=== PATIENT | male | born 1975 | race African-American/Black ===

== ENCOUNTER 2016-11-10 02:08 | Emergency (ER) | payer OTHER ==
[2016-11-10] MEDS ORDERED: NORMAL SALINE 1000 ML 1,000 ML IV PRN (02:26)
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
[2016-11-10] MEDS ORDERED: DIPH/PERTUSS(ACELL)/TETANUS VAC/PF 0.5 ML SYR (>=10YO) IM ONE (02:33)
[2016-11-10] MEDS ORDERED: CEFAZOLIN 2 GM/D5W RTU 50 ML IV ONE (02:33)
[2016-11-10] MEDS ORDERED: CEFAZOLIN 2 GM/D5W RTU 2 GM/50 ML RTUPB IV ONE (02:35)
[2016-11-10 03:51] VITALS: BP 108/70
== END 2016-11-10 02:50 | disposition short-term general hospital (02) ==
LOC: ER 02:08
DX: S52.252A Displaced comminuted fracture of shaft of ulna, left arm, initial encounter for closed fracture (principal); S52.322A Displaced transverse fracture of shaft of left radius, initial encounter for closed fracture; S81.812A Laceration without foreign body, left lower leg, initial encounter; S00.511A Abrasion of lip, initial encounter; S20.311A Abrasion of right front wall of thorax, initial encounter; V47.5XXA Car driver injured in collision with fixed or stationary object in traffic accident, initial encounter; I10 Essential (primary) hypertension; R41.0 Disorientation, unspecified
CPT/HCPCS: 99291; 90471; 96365; 71010; 73090; 73590; 90715; J7030; J0690